=== PATIENT | female | born 2000 | race American Indian/Alaskan Native ===

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

== ENCOUNTER 2018-03-25 15:50 | Emergency (ER) | payer MEDICAID, OTHER ==
[2018-03-25 16:00] VITALS: BP 126/75
[2018-03-25 16:32] LABS: Bacteria,Urine 1+ /HPF (Negative); Bilirubin,Urine NEG (Negative); Blood,Urine NEG (Negative); Color,Urine Yellow (Yellow); HCG Qualitative,Urine Negative (Negative); Mucus,Urine FEW /HPF; Protein,Urine <15 mg/dL mg/dL (Negative)
--- NOTE | 2018-03-25 16:56 | Emergency Department Report ---
ED Abdominal Pain HPI - General Chief Complaint: Abdominal Pain Stated Complaint: ABD PAIN Time Seen by Provider: 03/25/18 16:44 Source: patient, family Mode of arrival: Ambulatory Limitations: No Limitations - History of Present Illness Initial Comments: Patient is a 17-year-old Michelle female previously healthy who is complaining of right upper quadrant pain. Patient states pain started last night and has been continuous. Patient states that it is a sharp aching pain is 8 out of 10 in severity. Patient states that she has some mild nausea with no vomiting. Patient states that her pain increases at the end of urination. She denies any vaginal discharge or abnormal vaginal bleeding or hematuria. Patient states that these symptoms occur approximately 2 weeks ago as well without the dysuria. Patient states lasted for approximately 24 hours and then resolves spontaneously. Patient states her last meal before the pain started last night was a fracture can with mashed potatoes. - Related Data Previous Rx's Medication Instructions Recorded Last Taken Type Ibuprofen [Motrin] 600 mg PO Q8H PRN #30 tablet 06/27/15 Unknown Rx cephALEXin [Keflex] 500 mg PO Q6HR #40 capsule 06/27/15 Unknown Rx Nitrofurantoin Monohyd/M-Cryst 100 mg PO BID #14 capsule 03/30/17 Unknown Rx [Macrobid 100 mg Capsule] metroNIDAZOLE [Metronidazole] 500 mg PO BID #14 tablet 03/30/17 Unknown Rx Ciprofloxacin 0.2%(Nf) 4 drops TID #1 droperette 09/29/17 Unknown Rx [Ciprofloxacin Otic 0.2%(Nf)] Famotidine [Pepcid] 40 mg PO QHS #10 tablet 03/25/18 Unknown Rx Nitrofurantoin Monohyd/M-Cryst 100 mg PO BID #14 capsule 03/25/18 Unknown Rx [Macrobid 100 mg Capsule] traMADol [Ultram] 50 mg PO Q6HR PRN #10 tablet 03/25/18 Unknown Rx Allergies Allergy/AdvReac Type Severity Reaction Status Date / Time tape Allergy Itching Uncoded 09/29/17 05:15 ED Review of Systems ROS: Stated complaint: ABD PAIN Other details as noted in HPI Comment: All other systems reviewed and negative ED Past Medical Hx - Past Medical History Previous Medical History?: No - Surgical History Past Surgical History?: Yes Additional Surgical History: HERNIA REPAIR - Social History Smoking Status: Never Smoker Substance Use Type: Marijuana - Medications Home Medications: Home Medications Medication Instructions Recorded Confirmed Last Taken Type Ibuprofen [Motrin] 600 mg PO Q8H PRN #30 tablet 06/27/15 Unknown Rx cephALEXin [Keflex] 500 mg PO Q6HR #40 capsule 06/27/15 Unknown Rx Nitrofurantoin Monohyd/M-Cryst 100 mg PO BID #14 capsule 03/30/17 Unknown Rx [Macrobid 100 mg Capsule] metroNIDAZOLE [Metronidazole] 500 mg PO BID #14 tablet 03/30/17 Unknown Rx Ciprofloxacin 0.2%(Nf) 4 drops TID #1 droperette 09/29/17 Unknown Rx [Ciprofloxacin Otic 0.2%(Nf)] Famotidine [Pepcid] 40 mg PO QHS #10 tablet 03/25/18 Unknown Rx Nitrofurantoin Monohyd/M-Cryst 100 mg PO BID #14 capsule 03/25/18 Unknown Rx [Macrobid 100 mg Capsule] traMADol [Ultram] 50 mg PO Q6HR PRN #10 tablet 03/25/18 Unknown Rx ED Physical Exam - General Limitations: No Limitations General appearance: alert, in no apparent distress - Head Head exam: Present: atraumatic, normocephalic - Eye Eye exam: Present: normal appearance - ENT ENT exam: Present: mucous membranes moist - Neck Neck exam: Present: normal inspection - Respiratory Respiratory exam: Present: normal lung sounds bilaterally. Absent: respiratory distress, wheezes, rales, rhonchi - Cardiovascular Cardiovascular Exam: Present: regular rate, normal rhythm. Absent: systolic murmur, diastolic murmur, rubs, gallop - GI/Abdominal GI/Abdominal exam: Present: soft, tenderness (RUQ pain), normal bowel sounds. Absent: distended, rebound, rigid - Extremities Exam Extremities exam: Present: normal inspection - Back Exam Back exam: Present: normal inspection - Neurological Exam Neurological exam: Present: alert, oriented X3 - Psychiatric Psychiatric exam: Present: normal affect, normal mood - Skin Skin exam: Present: warm, dry, intact, normal color. Absent: rash ED Course Vital Signs 03/25/18 15:58 Temperature 98.3 F Pulse Rate 89 Respiratory 14 Rate Blood Pressure 126/75 O2 Sat by Pulse 97 Oximetry - Reevaluation(s) Reevaluation #1: 03/25/18 16:56 Patient with point tenderness in the right upper quadrant. Patient will be sent for an ultrasound to rule out gallbladder disease. ED Medical Decision Making - Lab Data Labs 03/25/18 16:05 Urine Color Yellow Urine Turbidity Clear Urine pH 6.0 Ur Specific [place] 1.027 Urine Protein <15 mg/dl Urine Glucose (UA) Neg Urine Ketones Neg Urine Blood Neg Urine Nitrite Neg Urine Bilirubin Neg Urine Urobilinogen 4.0 Ur Leukocyte Esterase Sm Urine WBC (Auto) 5.0 Urine RBC (Auto) 2.0 U Epithel Cells (Auto) 2.0 Urine Bacteria (Auto) 1+ Urine Mucus Few Urine HCG, Qual Negative - Radiology Data Radiology results: report reviewed (ultrasound of the right upper quadrant shows no acute process.) - Medical Decision Making Patient's ultrasound showed no evidence of liver abnormality, biliary dysfunction, or pancreatic inflammation. Patient likely with small ulcer. Patient be referred to gastroenterology. Patient also be started on antibiotics for her urinary tract infection. Patient be discharged home at this time. Critical care attestation.: If time is entered above; I have spent that time in minutes in the direct care of this critically ill patient, excluding procedure time. ED Disposition Clinical Impression: Peptic ulcer Acute cystitis Qualifiers: Hematuria presence: without hematuria Qualified Code(s): N30.00 - Acute cystitis without hematuria Disposition: - TO HOME OR SELFCARE Is pt being admited?: No Does the pt Need Aspirin: No Condition: Stable Instructions: Peptic Ulcer (ED), Diet for Ulcers and Gastritis (ED), Urinary Tract Infection in Women (ED) Referrals: KALEE FORTE MD [Staff Physician] - 3-5 Days Time of Disposition: 19:32
--- NOTE | 2018-03-25 19:08 | Ultrasound Report ---
FINAL REPORT EXAM: US ABDOMEN LIMITED HISTORY: RUQ pain COMPARISON: None available. TECHNIQUE: Several real-time grayscale and color Doppler images were obtained. No technologist works heet is available. FINDINGS: No shadowing gallstones. No biliary dilatation. The common bile duct measures 2 millimeters. Homogene ous echogenicity the visualized portions the liver and pancreas. Right kidney measures 7.9 centimeter s in length. No hydronephrosis. Visualized aorta is normal in caliber. IMPRESSION: No cholelithiasis or biliary dilatation.
== END 2018-03-25 19:43 | disposition home or self-care (01) ==
LOC: ED 15:50
DX: N30.00 Acute cystitis without hematuria (principal); K27.9 Peptic ulcer, site unspecified, unspecified as acute or chronic, without hemorrhage or perforation; F12.10 Cannabis abuse, uncomplicated
CPT/HCPCS: 76705; 81001; 81025